=== PATIENT | male | born 1995 | race Two or more races ===

== ENCOUNTER 2022-06-11 13:33 | Emergency (ER) | payer OTHER ==
[~2022-06-11] VITALS: Ht 177.8 cm; Wt 68.1 kg
[2022-06-11] MEDS ORDERED: MORPHINE SULFATE 4 MG/ML SYR/VIAL IV ONE (13:45)
[2022-06-11] MEDS ORDERED: ONDANSETRON HCL 4 MG/2 ML VIAL IV ONE (13:45)
[2022-06-11] MEDS ORDERED: ETOMIDATE (2MG/ML) 20ML VIAL IV ONE (16:30)
[2022-06-11] MEDS ORDERED: HYDROcodone-ACET 10/325MG TAB PO ONE ×2 (19:15→23:45)
[2022-06-11] MEDS ORDERED: HYDR-4798 PO (22:17)
[2022-06-11] MEDS ORDERED: HYDROcodone-ACET 5/325MG TAB PO ONE ×2 (23:30→23:45)
[2022-06-11 23:42] VITALS: BP 122/76
== END 2022-06-12 | disposition home or self-care (01) ==
LOC: ER 13:33 → EDBD 13:33 → ER 06-12
DX: S52.502A Unspecified fracture of the lower end of left radius, initial encounter for closed fracture (principal); V43.52XA Car driver injured in collision with other type car in traffic accident, initial encounter; Y93.89 Activity, other specified; Y92.410 Unspecified street and highway as the place of occurrence of the external cause; Y99.8 Other external cause status
CPT/HCPCS: 25605; 73110; 96374; 96375; 99285; J2270; J2405